=== PATIENT | female | born 1985 | race Caucasian/White ===

== ENCOUNTER 2016-06-06 06:47 | Emergency (ER) | payer BC ==
[~2016-06-06] VITALS: Ht 165.1 cm; Wt 74.0 kg
[~2016-06-06 06:47] MED LIST: AUGMENTIN875 MG PO; BENTYL20 MG PO; ESSENTIAL DAIL1 EACH PO; EXCEDRIN MIGRA1 EAC3 PO; KENALOG,ARISTOC80 G1 TP; MICROGESTIN FE1 EAC1 PO; MOTRIN800 MG PO; NAPROSYN500 MG PO; NAPROXEN500 MG PO; NO HOME MEDS; NOHOMEMEDS; NORCO 5/3251 TABLET PO; OMEPRAZOLE40 M1 PO; ONE DAILY TABL1 EAC1 PO; PEN-VEE K,VEET500 MG PO; PERCOCET 5/31 TABLET PO; REGLAN10 MG PO; TRAMADOL HCL50 MG PO; TYLENOL REGULA325 MG PO; ULTRACET1 TABLET PO; ULTRAM50 MG PO; ZOFRAN ODT4 MG PO
[2016-06-06 06:50] VITALS: BP 122/72
[2016-06-06] MEDS ORDERED: CLEOCIN150 MG PO (07:44)
[2016-06-06] MEDS ORDERED: TRAMADOL HCL50 MG PO (07:44)
[2016-06-06] MEDS ORDERED: NAPROSYN500 MG PO (07:44)
== END 2016-06-06 07:57 | disposition home or self-care (01) ==
LOC: EME 06:47
PROC: 3E0T3BZ Introduction of Anesthetic Agent into Peripheral Nerves and Plexi, Percutaneous Approach (ICD-10-PCS; principal; 2016-06-06)
DX: K04.7 Periapical abscess without sinus (principal); K02.9 Dental caries, unspecified; K05.10 Chronic gingivitis, plaque induced; S02.5XXA Fracture of tooth (traumatic), initial encounter for closed fracture; F17.210 Nicotine dependence, cigarettes, uncomplicated
CPT/HCPCS: 99281; 99284

== ENCOUNTER 2016-06-13 12:48 | Emergency (ER) | payer BC ==
[~2016-06-13] VITALS: Ht 165.1 cm; Wt 74.4 kg
[~2016-06-13 12:48] MED LIST changes: +CLEOCIN150 MG PO
[2016-06-13 14:16] LABS: ADD MIUA? YES; BILIRUBIN NEGATIVE; BLOOD SMALL; COLOR YELLOW ((YELLOW)); GLUCOSE (STRIP) NEGATIVE; KETONES NEGATIVE; LEUKOCYTES NEGATIVE; NITRITE NEGATIVE; PH, URINE 6.5 (5-8); PROTEIN (STRIP) NEGATIVE
[2016-06-13 14:37] LABS: EPITHELIAL CELLS 1+; RED BLOOD CELLS RARE /HPF (0-5); WHITE BLOOD CELLS NONE SEEN /HPF (0-5)
[2016-06-13 14:38] LABS: BACTERIA RARE; CASTS NONE SEEN /LPF; CRYSTALS NONE SEEN; MUCUS NONE SEEN; UCUL ADDED? NO
[2016-06-13 15:22] LABS: HEMATOCRIT 43.5 % (36.0-46.0); MCH 29.5 PG (29.0-34.0); MCV 86.8 FL (83-99); MEAN PLAT.VOLUME 10.8 uM^3 (9.5-12.4); PLATELET COUNT 311 K/uL (156-360); RBC DIS.WIDTH-CV 13.7 % (11.8-14.6); RBC DIS.WIDTH-SD 42.6 % (39-53); RED BLOOD COUNT 5.01 M/uL (3.80-5.20); WHITE BLOOD COUNT 9.9 K/uL (4.1-10.2)
[2016-06-13 15:32] LABS: CHLORIDE 105 mEq/L (99-109); POTASSIUM 4.2 mEq/L (3.7-5.4); SODIUM 141 mEq/L (136-147)
[2016-06-13 15:34] LABS: GLUCOSE 100 mg/dL (70-99)
[2016-06-13 15:36] LABS: ANION GAP 16 MEQ/L (2-14); TOTAL BILIRUBIN 0.3 mg/dL (0.0-1.0)
[2016-06-13 15:38] LABS: ALKALINE PHOSPHATASE 54 IU/L (3-129); GFR ESTIMATE (CALCULATED) > 59 mL/min/
[2016-06-13 15:39] LABS: UREA NITROGEN (BUN) 10 mg/dL (9-23)
[2016-06-13 15:41] LABS: LIPASE 83 U/L (1.0-51.0)
[2016-06-13 15:52] LABS: QUANTITATIVE HCG < 4.0 MIU/ML
[2016-06-13] MEDS ORDERED: CARAFATE1 GM PO (16:07)
[2016-06-13] MEDS ORDERED: PEPCID20 MG PO (16:07)
[2016-06-13 16:25] VITALS: BP 125/66
[2016-06-14] MEDS ORDERED: ZOFRAN ODT4 MG PO (00:11)
== END 2016-06-13 16:32 | disposition home or self-care (01) ==
LOC: EME 12:48
DX: R10.13 Epigastric pain (principal); R74.8 Abnormal levels of other serum enzymes; F17.200 Nicotine dependence, unspecified, uncomplicated
CPT/HCPCS: 80053; 81003; 83690; 84702; 85027; 99281; 99284

== ENCOUNTER 2016-06-13 18:30 | Emergency (ER) | payer BC ==
[~2016-06-13] VITALS: Ht 165.1 cm; Wt 70.0 kg
[~2016-06-13 18:30] MED LIST changes: +CARAFATE1 GM PO; +PEPCID20 MG PO
[2016-06-13 21:38] LABS: HEMATOCRIT 39.9 % (36.0-46.0); MCH 29.8 PG (29.0-34.0); MCHC 34.3 G/DL (30.0-36.0); MCV 86.7 FL (83-99); MEAN PLAT.VOLUME 9.9 uM^3 (9.5-12.4); PLATELET COUNT 281 K/uL (156-360); RBC DIS.WIDTH-CV 13.5 % (11.8-14.6); RBC DIS.WIDTH-SD 41.7 % (39-53)
[2016-06-13 21:40] LABS: WHITE BLOOD COUNT 14.1 K/uL (4.1-10.2)
[2016-06-13 21:44] LABS: CHLORIDE 107 mEq/L (99-109); POTASSIUM 3.8 mEq/L (3.7-5.4); SODIUM 139 mEq/L (136-147)
[2016-06-13 21:46] LABS: GLUCOSE 89 mg/dL (70-99)
[2016-06-13 21:47] LABS: ANION GAP 9 MEQ/L (2-14)
[2016-06-13 21:48] LABS: TOTAL BILIRUBIN 0.3 mg/dL (0.0-1.0)
[2016-06-13 21:49] LABS: ALKALINE PHOSPHATASE 46 IU/L (3-129)
[2016-06-13 21:50] LABS: GFR ESTIMATE (CALCULATED) > 59 mL/min/
[2016-06-13 21:51] LABS: UREA NITROGEN (BUN) 9 mg/dL (9-23)
[2016-06-13 21:53] LABS: LIPASE 83 U/L (1.0-51.0)
[2016-06-14] MEDS ORDERED: ZOFRAN ODT4 MG PO (00:11)
[2016-06-14 00:49] VITALS: BP 115/71
== END 2016-06-14 00:51 | disposition home or self-care (01) ==
LOC: RME 18:30 → EME 18:30 → RME 06-14 00:51
PROVIDERS: Nurse Practitioner Family
DX: R10.9 Unspecified abdominal pain (principal); R11.2 Nausea with vomiting, unspecified; D72.829 Elevated white blood cell count, unspecified; F17.200 Nicotine dependence, unspecified, uncomplicated
CPT/HCPCS: 74177; 80053; 83690; 85027; 99281; 99284; J1885; J7030

== ENCOUNTER 2016-10-08 23:28 | Emergency (ER) | payer BC ==
[~2016-10-08] VITALS: Ht 165.1 cm; Wt 74.3 kg
[2016-10-09] MEDS ORDERED: MOTRIN600 MG PO (00:44)
[2016-10-09 00:55] VITALS: BP 125/72
== END 2016-10-09 00:56 | disposition home or self-care (01) ==
LOC: EME 23:28
DX: S80.02XA Contusion of left knee, initial encounter (principal); N19 Unspecified kidney failure; W18.30XA Fall on same level, unspecified, initial encounter; F17.200 Nicotine dependence, unspecified, uncomplicated; Z86.14 Personal history of Methicillin resistant Staphylococcus aureus infection
CPT/HCPCS: 73564; 99281; 99283

== ENCOUNTER 2017-01-15 12:48 | Emergency (ER) | payer SELFPAY ==
[~2017-01-15] VITALS: Ht 165.1 cm; Wt 70.8 kg
[~2017-01-15 12:48] MED LIST changes: +MOTRIN600 MG PO
[2017-01-15 15:28] LABS: ADD MIUA? YES; BILIRUBIN NEGATIVE; BLOOD MODERATE; COLOR YELLOW ((YELLOW)); GLUCOSE (STRIP) NEGATIVE; KETONES NEGATIVE; LEUKOCYTES LARGE; NITRITE POSITIVE; PROTEIN (STRIP) 100; SPECIFIC GRAVITY 1.011 (1.000-1.030)
[2017-01-15 15:42] LABS: RED BLOOD CELLS RARE /HPF (0-5)
[2017-01-15 15:43] LABS: BACTERIA 2+ /HPF; EPITHELIAL CELLS 1+ /HPF; MUCUS RARE /LPF; UCUL ADDED? YES; WHITE BLOOD CELLS 40-50 /HPF (0-5)
[2017-01-15 15:44] LABS: CASTS NONE SEEN /LPF; CRYSTALS NONE SEEN
[2017-01-15 16:02] LABS: MCHC 33.8 G/DL (30.0-36.0); MCV 85.7 FL (83-99); PLATELET COUNT 202 K/uL (156-360); RBC DIS.WIDTH-SD 40.2 % (39-53); WHITE BLOOD COUNT 21.8 K/uL (4.1-10.2)
[2017-01-15 16:12] LABS: CHLORIDE 104 mEq/L (99-109); POTASSIUM 3.9 mEq/L (3.7-5.4); SODIUM 136 mEq/L (136-147)
[2017-01-15 16:14] LABS: GLUCOSE 105 mg/dL (70-99)
[2017-01-15 16:15] LABS: ANION GAP 12 MEQ/L (2-14)
[2017-01-15 16:16] LABS: TOTAL BILIRUBIN 0.8 mg/dL (0.0-1.0)
[2017-01-15 16:18] LABS: ALKALINE PHOSPHATASE 77 IU/L (3-129); GFR ESTIMATE (CALCULATED) > 59 mL/min/
[2017-01-15 16:19] LABS: UREA NITROGEN (BUN) 8 mg/dL (9-23)
[2017-01-15 17:07] LABS: QUANTITATIVE HCG < 4.0 MIU/ML
[2017-01-15] MEDS ORDERED: TYLENOL WITH C1 EACH PO (17:57)
[2017-01-15] MEDS ORDERED: KEFLEX500 MG PO (17:57)
[2017-01-15 19:03] VITALS: BP 119/67
[2017-01-16] MEDS ORDERED: FLOMAX0.4 MG PO (07:16)
[2017-01-16] MEDS ORDERED: PYRIDIUM200 MG PO (07:16)
== END 2017-01-15 19:03 | disposition home or self-care (01) ==
LOC: EME 12:48
PROVIDERS: Physician Assistant
DX: N10 Acute pyelonephritis (principal); N30.90 Cystitis, unspecified without hematuria; F17.200 Nicotine dependence, unspecified, uncomplicated; Z86.14 Personal history of Methicillin resistant Staphylococcus aureus infection
CPT/HCPCS: 72100; 74177; 80053; 81003; 84702; 85027; 87077; 87086; 87186; 99281; 99284; J0696; J1885; J7030; J7050

== ENCOUNTER 2017-01-16 06:07 | Emergency (ER) | payer SELFPAY ==
[~2017-01-16] VITALS: Ht 165.1 cm; Wt 70.9 kg
[~2017-01-16 06:07] MED LIST changes: +KEFLEX500 MG PO; +TYLENOL WITH C1 EACH PO
[2017-01-16] MEDS ORDERED: FLOMAX0.4 MG PO (07:16)
[2017-01-16] MEDS ORDERED: PYRIDIUM200 MG PO (07:16)
[2017-01-16 07:43] VITALS: BP 117/72
== END 2017-01-16 07:44 | disposition home or self-care (01) ==
LOC: EME → EDBD 06:07 → EME 06:07
DX: N39.0 Urinary tract infection, site not specified (principal); N20.0 Calculus of kidney; R11.2 Nausea with vomiting, unspecified; Z91.14 Patient's other noncompliance with medication regimen; Z86.14 Personal history of Methicillin resistant Staphylococcus aureus infection; F17.200 Nicotine dependence, unspecified, uncomplicated
CPT/HCPCS: 99281; 99283; J1885

== ENCOUNTER 2017-02-21 22:08 | Emergency (ER) | payer SELFPAY ==
[~2017-02-21] VITALS: Ht 165.1 cm; Wt 71.6 kg
[~2017-02-21 22:08] MED LIST changes: +FLOMAX0.4 MG PO; +PYRIDIUM200 MG PO
[2017-02-22] MEDS ORDERED: MOTRIN400 MG PO (01:08)
[2017-02-22 01:41] VITALS: BP 105/70
== END 2017-02-22 01:41 | disposition home or self-care (01) ==
LOC: EME 22:08 → EXP 22:08
DX: S40.012A Contusion of left shoulder, initial encounter (principal); M25.552 Pain in left hip; W06.XXXA Fall from bed, initial encounter; Y92.003 Bedroom of unspecified non-institutional (private) residence as the place of occurrence of the external cause
CPT/HCPCS: 73030; 73502; 99281; 99283

== ENCOUNTER 2017-03-03 05:34 | Emergency (ER) | payer SELFPAY ==
[~2017-03-03] VITALS: Ht 165.1 cm; Wt 72.1 kg
[~2017-03-03 05:34] MED LIST changes: +MOTRIN400 MG PO
[2017-03-03 06:23] LABS: MCH 29.9 PG (29.0-34.0); MCHC 34.7 G/DL (30.0-36.0); MEAN PLAT.VOLUME 9.7 uM^3 (9.5-12.4); PLATELET COUNT 236 K/uL (156-360); RBC DIS.WIDTH-CV 13.5 % (11.8-14.6); RBC DIS.WIDTH-SD 42.9 % (39-53); RED BLOOD COUNT 4.42 M/uL (3.80-5.20); WHITE BLOOD COUNT 14.5 K/uL (4.1-10.2)
[2017-03-03 06:33] LABS: CHLORIDE 107 mEq/L (99-109); POTASSIUM 3.3 mEq/L (3.7-5.4); SODIUM 138 mEq/L (136-147)
[2017-03-03 06:35] LABS: GLUCOSE 96 mg/dL (70-99)
[2017-03-03 06:36] LABS: ANION GAP 10 MEQ/L (2-14)
[2017-03-03 06:39] LABS: GFR ESTIMATE (CALCULATED) > 59 mL/min/
[2017-03-03 06:40] LABS: UREA NITROGEN (BUN) 5 mg/dL (9-23)
[2017-03-03] MEDS ORDERED: ZOFRAN4 MG PO (06:50)
[2017-03-03] MEDS ORDERED: ZITHROMAX Z-PA250 MG PO (06:50)
[2017-03-03 07:02] VITALS: BP 114/67
== END 2017-03-03 07:03 | disposition home or self-care (01) ==
LOC: EME 05:34
DX: J20.9 Acute bronchitis, unspecified (principal); J06.9 Acute upper respiratory infection, unspecified; R11.0 Nausea; F17.200 Nicotine dependence, unspecified, uncomplicated
CPT/HCPCS: 71020; 80048; 85027; 99281; 99285

== ENCOUNTER 2017-04-21 23:23 | Emergency (ER) | payer SELFPAY ==
[~2017-04-21] VITALS: Ht 165.1 cm; Wt 71.5 kg
[~2017-04-21 23:23] MED LIST changes: +ZITHROMAX Z-PA250 MG PO; +ZOFRAN4 MG PO
[2017-04-21 23:50] LABS: ADD MIUA? YES; BILIRUBIN NEGATIVE; BLOOD SMALL; COLOR YELLOW ((YELLOW)); GLUCOSE (STRIP) NEGATIVE; KETONES NEGATIVE; LEUKOCYTES NEGATIVE; NITRITE NEGATIVE; PROTEIN (STRIP) NEGATIVE; SPECIFIC GRAVITY 1.019 (1.000-1.030)
[2017-04-21 23:55] LABS: BACTERIA RARE /HPF; EPITHELIAL CELLS 1+ /HPF; MUCUS TRACE /LPF; UCUL ADDED? NO; WHITE BLOOD CELLS 0-5 /HPF (0-5)
[2017-04-22 00:15] LABS: HEMATOCRIT 42.1 % (36.0-46.0); MCH 29.9 PG (29.0-34.0); MCHC 34.2 G/DL (30.0-36.0); MCV 87.3 FL (83-99); MEAN PLAT.VOLUME 10.1 uM^3 (9.5-12.4); PLATELET COUNT 246 K/uL (156-360); RBC DIS.WIDTH-CV 12.9 % (11.8-14.6); RBC DIS.WIDTH-SD 41.2 % (39-53); RED BLOOD COUNT 4.82 M/uL (3.80-5.20); WHITE BLOOD COUNT 14.3 K/uL (4.1-10.2)
[2017-04-22 00:33] LABS: CHLORIDE 105 mEq/L (99-109); POTASSIUM 3.6 mEq/L (3.7-5.4); SODIUM 137 mEq/L (136-147)
[2017-04-22 00:35] LABS: GLUCOSE 132 mg/dL (70-99)
[2017-04-22 00:37] LABS: ANION GAP 12 MEQ/L (2-14); TOTAL BILIRUBIN 0.4 mg/dL (0.0-1.0)
[2017-04-22 00:39] LABS: ALKALINE PHOSPHATASE 66 IU/L (3-129); GFR ESTIMATE (CALCULATED) 46 mL/min/
[2017-04-22 00:40] LABS: UREA NITROGEN (BUN) 13 mg/dL (9-23)
[2017-04-22 00:47] LABS: QUANTITATIVE HCG < 4.0 MIU/ML
[2017-04-22] MEDS ORDERED: KEFLEX500 MG PO (03:16)
[2017-04-22 03:51] VITALS: BP 110/71
== END 2017-04-22 03:52 | disposition home or self-care (01) ==
LOC: EXP 23:23 → EME 23:23 → EXP 04-22 03:52
DX: R50.9 Fever, unspecified (principal); M54.5 Low back pain; N28.9 Disorder of kidney and ureter, unspecified
CPT/HCPCS: 80053; 81003; 84702; 85027; 99281; 99283

== ENCOUNTER 2017-05-20 22:24 | Emergency (ER) | payer SELFPAY ==
[~2017-05-20] VITALS: Ht 165.1 cm; Wt 72.1 kg
[2017-05-21] MEDS ORDERED: TRAMADOL HCL50 MG PO (00:22)
[2017-05-21] MEDS ORDERED: MOTRIN600 MG PO (00:22)
[2017-05-21 00:39] VITALS: BP 111/74
== END 2017-05-21 00:39 | disposition home or self-care (01) ==
LOC: EME 22:24
DX: M79.671 Pain in right foot (principal)
CPT/HCPCS: 73630; 99281; 99283

== ENCOUNTER 2017-06-21 21:49 | Emergency (ER) | payer SELFPAY ==
[~2017-06-21] VITALS: Ht 154.9 cm; Wt 73.6 kg
[2017-06-21 23:00] VITALS: BP 117/71
== END 2017-06-21 23:00 | disposition home or self-care (01) ==
LOC: EME 21:49
DX: S43.401A Unspecified sprain of right shoulder joint, initial encounter (principal); F17.200 Nicotine dependence, unspecified, uncomplicated; W01.0XXA Fall on same level from slipping, tripping and stumbling without subsequent striking against object, initial encounter
CPT/HCPCS: 73030

== ENCOUNTER 2017-06-26 20:58 | Emergency (ER) | payer SELFPAY ==
[~2017-06-26] VITALS: Ht 165.1 cm; Wt 71.7 kg
[2017-06-26 22:54] VITALS: BP 109/65
== END 2017-06-26 22:55 | disposition home or self-care (01) ==
LOC: EME 20:58
DX: S90.31XA Contusion of right foot, initial encounter (principal); W20.8XXA Other cause of strike by thrown, projected or falling object, initial encounter
CPT/HCPCS: 73630; 99281; 99283

== ENCOUNTER 2017-07-06 16:14 | Emergency (ER) | payer OTHER ==
[~2017-07-06] VITALS: Ht 165.1 cm; Wt 73.4 kg
[2017-07-06 17:05] LABS: HEMATOCRIT 41.2 % (36.0-46.0); HEMOGLOBIN 14.3 G/DL (11.9-15.5); MCH 31.1 PG (29.0-34.0); MCHC 34.7 G/DL (30.0-36.0); MCV 89.6 FL (83-99); PLATELET COUNT 254 K/uL (156-360); RBC DIS.WIDTH-SD 45.9 % (39-53); WHITE BLOOD COUNT 10.7 K/uL (4.1-10.2)
[2017-07-06 17:16] LABS: ALBUMIN 3.9 g/dL (3.2-4.8); CHLORIDE 107 mEq/L (99-109); POTASSIUM 4.4 mEq/L (3.7-5.4); SODIUM 140 mEq/L (136-147)
[2017-07-06 17:19] LABS: GLUCOSE 92 mg/dL (70-99)
[2017-07-06 17:20] LABS: TOTAL BILIRUBIN 0.2 mg/dL (0.0-1.0)
[2017-07-06 17:22] LABS: ALKALINE PHOSPHATASE 66 IU/L (3-129); CREATININE 0.9 mg/dL (0.6-1.3); GFR ESTIMATE (CALCULATED) > 59 mL/min/
[2017-07-06 17:23] LABS: UREA NITROGEN (BUN) 14 mg/dL (9-23)
[2017-07-06 17:24] LABS: AST (GOT) 21 IU/L (2-34)
[2017-07-06 17:25] LABS: ALT (GPT) 11 IU/L (3-49)
[2017-07-06 17:28] LABS: APPEARANCE CLEAR ((CLEAR)); BILIRUBIN SMALL; BLOOD NEGATIVE; COLOR YELLOW ((YELLOW)); GLUCOSE (STRIP) NEGATIVE; KETONES 5; LEUKOCYTES TRACE; NITRITE NEGATIVE; PROTEIN (STRIP) 30; SPECIFIC GRAVITY 1.036 (1.000-1.030)
[2017-07-06 18:17] LABS: RED BLOOD CELLS RARE /HPF (0-5); WHITE BLOOD CELLS RARE /HPF (0-5)
[2017-07-06 18:18] LABS: BACTERIA RARE /HPF; EPITHELIAL CELLS 2+ /HPF; MUCUS 1+ /LPF; UCUL ADDED? NO
[2017-07-06] MEDS ORDERED: MOTRIN600 MG PO (18:23)
[2017-07-06] MEDS ORDERED: ULTRAM50 MG PO (18:23)
[2017-07-06] MEDS ORDERED: BENTYL20 MG PO (18:23)
[2017-07-06 18:33] VITALS: BP 101/56
== END 2017-07-06 18:35 | disposition home or self-care (01) ==
LOC: EME 16:14
PROVIDERS: Nurse Practitioner Family
DX: N20.0 Calculus of kidney (principal); R10.32 Left lower quadrant pain; Z90.49 Acquired absence of other specified parts of digestive tract; Z86.14 Personal history of Methicillin resistant Staphylococcus aureus infection; F17.200 Nicotine dependence, unspecified, uncomplicated
CPT/HCPCS: 74176; 80053; 81003; 85027; 99281; 99284

== ENCOUNTER 2017-08-10 19:37 | Emergency (ER) | payer OTHER ==
[~2017-08-10] VITALS: Ht 165.1 cm; Wt 74.3 kg
[2017-08-10] MEDS ORDERED: NAPROSYN500 MG PO (21:18)
[2017-08-10 21:37] VITALS: BP 120/73
== END 2017-08-10 21:38 | disposition home or self-care (01) ==
LOC: EME 19:37
DX: S43.402A Unspecified sprain of left shoulder joint, initial encounter (principal); X58.XXXA Exposure to other specified factors, initial encounter; Z79.3 Long term (current) use of hormonal contraceptives; F17.200 Nicotine dependence, unspecified, uncomplicated
CPT/HCPCS: 99281; 99283

== ENCOUNTER 2017-10-03 06:53 | Emergency (ER) | payer OTHER ==
[~2017-10-03] VITALS: Ht 165.1 cm; Wt 76.5 kg
[2017-10-03] MEDS ORDERED: ZITHROMAX Z-PA250 MG PO (08:30)
[2017-10-03 08:35] VITALS: BP 110/70
== END 2017-10-03 08:37 | disposition home or self-care (01) ==
LOC: EME 06:53
DX: J20.9 Acute bronchitis, unspecified (principal); Z71.6 Tobacco abuse counseling; G43.909 Migraine, unspecified, not intractable, without status migrainosus; F32.9 Major depressive disorder, single episode, unspecified; F17.210 Nicotine dependence, cigarettes, uncomplicated; Z86.14 Personal history of Methicillin resistant Staphylococcus aureus infection; Z90.49 Acquired absence of other specified parts of digestive tract
CPT/HCPCS: 71046; 99281; 99283

== ENCOUNTER 2017-10-20 19:30 | Emergency (ER) | payer SELFPAY ==
[~2017-10-20] VITALS: Ht 165.1 cm; Wt 75.7 kg
[2017-10-20 19:54] LABS: APPEARANCE CLEAR ((CLEAR)); BILIRUBIN NEGATIVE; BLOOD SMALL; COLOR STRAW ((YELLOW)); GLUCOSE (STRIP) NEGATIVE; KETONES NEGATIVE; LEUKOCYTES NEGATIVE; NITRITE NEGATIVE; PROTEIN (STRIP) NEGATIVE; SPECIFIC GRAVITY 1.003 (1.000-1.030); UROBILINOGEN 0.2 MG/DL (0.2-1.0)
[2017-10-20 19:55] LABS: HEMATOCRIT 40.8 % (36.0-46.0); HEMOGLOBIN 14.3 G/DL (11.9-15.5); MCH 30.8 PG (29.0-34.0); MCV 87.7 FL (83-99); PLATELET COUNT 281 K/uL (156-360); RBC DIS.WIDTH-CV 12.9 % (11.8-14.6); RBC DIS.WIDTH-SD 41.3 % (39-53); RED BLOOD COUNT 4.65 M/uL (3.80-5.20); WHITE BLOOD COUNT 10.6 K/uL (4.1-10.2)
[2017-10-20 19:57] LABS: BACTERIA NONE SEEN /HPF; EPITHELIAL CELLS RARE /HPF; MUCUS NONE SEEN /LPF; RED BLOOD CELLS 0-5 /HPF (0-5); UCUL ADDED? NO; WHITE BLOOD CELLS 0-5 /HPF (0-5)
[2017-10-20 20:05] LABS: CHLORIDE 105 mEq/L (99-109); POTASSIUM 3.9 mEq/L (3.7-5.4); SODIUM 139 mEq/L (136-147)
[2017-10-20 20:07] LABS: GLUCOSE 65 mg/dL (70-99); TOTAL PROTEIN 7.1 g/dL (6.4-8.3)
[2017-10-20 20:09] LABS: TOTAL BILIRUBIN 0.5 mg/dL (0.0-1.0)
[2017-10-20 20:10] LABS: ALKALINE PHOSPHATASE 74 IU/L (3-129)
[2017-10-20 20:11] LABS: CREATININE 1.1 mg/dL (0.6-1.3); GFR ESTIMATE (CALCULATED) > 59 mL/min/
[2017-10-20 20:12] LABS: AST (GOT) 18 IU/L (2-34); UREA NITROGEN (BUN) 8 mg/dL (9-23)
[2017-10-20 20:14] LABS: ALT (GPT) 11 IU/L (3-49); LIPASE 57 U/L (1.0-51.0)
[2017-10-20 20:21] LABS: QUANTITATIVE HCG < 4.0 MIU/ML
[2017-10-20] MEDS ORDERED: BENTYL20 MG PO (22:40)
[2017-10-20] MEDS ORDERED: ZOFRAN ODT8 MG PO (22:40)
[2017-10-20 22:50] VITALS: BP 111/76
== END 2017-10-20 22:52 | disposition home or self-care (01) ==
LOC: EME 19:30
DX: R10.9 Unspecified abdominal pain (principal); R11.2 Nausea with vomiting, unspecified; F17.200 Nicotine dependence, unspecified, uncomplicated; G43.909 Migraine, unspecified, not intractable, without status migrainosus; F32.9 Major depressive disorder, single episode, unspecified; Z86.14 Personal history of Methicillin resistant Staphylococcus aureus infection; Z90.49 Acquired absence of other specified parts of digestive tract
CPT/HCPCS: 74022; 80053; 81003; 83690; 84702; 85027; 99281; 99284

== ENCOUNTER 2017-11-01 19:42 | Emergency (ER) | payer SELFPAY ==
[~2017-11-01] VITALS: Ht 165.1 cm; Wt 76.4 kg
[~2017-11-01 19:42] MED LIST changes: +ZOFRAN ODT8 MG PO
[2017-11-01 22:45] VITALS: BP 119/68
== END 2017-11-01 22:45 | disposition home or self-care (01) ==
LOC: EME 19:42
DX: S61.200A Unspecified open wound of right index finger without damage to nail, initial encounter (principal); W25.XXXA Contact with sharp glass, initial encounter; F17.200 Nicotine dependence, unspecified, uncomplicated
CPT/HCPCS: 99281; 99283

== ENCOUNTER 2017-11-29 22:44 | Emergency (ER) | payer SELFPAY ==
[~2017-11-29] VITALS: Ht 165.1 cm; Wt 78.1 kg
[2017-11-30 01:10] VITALS: BP 110/66
== END 2017-11-30 01:15 | disposition home or self-care (01) ==
LOC: EME 22:44
DX: S46.912A Strain of unspecified muscle, fascia and tendon at shoulder and upper arm level, left arm, initial encounter (principal); W01.0XXA Fall on same level from slipping, tripping and stumbling without subsequent striking against object, initial encounter; F32.9 Major depressive disorder, single episode, unspecified; F17.200 Nicotine dependence, unspecified, uncomplicated; Z86.14 Personal history of Methicillin resistant Staphylococcus aureus infection; Z90.49 Acquired absence of other specified parts of digestive tract
CPT/HCPCS: 73030; 99281; 99284

== ENCOUNTER 2017-12-04 20:18 | Emergency (ER) | payer SELFPAY | END 2017-12-04 20:36 | disposition left against medical advice (07) | LOC: EME 20:18 | DX: M25.562 Pain in left knee (principal); Z53.21 Procedure and treatment not carried out due to patient leaving prior to being seen by health care provider ==